=== PATIENT | female | born 1960 | race Caucasian/White ===

== ENCOUNTER 2024-04-23 07:18 | Day surgery (SDC) | payer OTHER ==
[2024-04-20 14:48] LABS: ALBUMIN 3.8 G/DL (3.4-5.0); ALKALINE PHOSPHATASE 90 IU/L (46-116); BLOOD UREA NITROGEN 18 MG/DL (7-18); BUN/CREATININE RATIO 23.1 (10.0-20.0); CALCIUM 9.1 MG/DL (8.5-10.1); CHLORIDE 104 MMOL/L (99-107); CREATININE 0.78 MG/DL (0.40-0.90); PRE OP ALT 19 U/L (30-65); PRE OP ANION GAP 6 (8-16); PRE OP AST 18 U/L (10-37); PRE OP BILIRUB, TOTAL 0.2 MG/DL (0.0-1.0); PRE OP GLUCOSE 96 MG/DL (70-104); PRE OP POTASSIUM 3.9 MMOL/L (3.4-5.1); PRE OP SODIUM 138 MMOL/L (135-145); TOTAL CARBON DIOXIDE 27.9 MMOL/L (24-32); TOTAL PROTEIN 7.7 G/DL (6.4-8.2); eGFR 74 ML/MIN
[2024-04-20 15:15] LABS: BASOPHILS % (AUTO) 0.5 % (0-1); EOSINOPHILS # (AUTO) 0.3 X10'3 (0-0.9); EOSINOPHILS % (AUTO) 3.4 % (0-6); LYMPHOCYTES % (AUTO) 45.2 % (21-51); MEAN CORPUSCULAR HEMOGLOBIN 29.9 PG (27.0-31.0); MEAN CORPUSCULAR HGB CONC 33.5 g/dL (33.0-36.5); MEAN CORPUSCULAR VOLUME 89.2 FL (78-98); MEAN PLATELET VOLUME 9.4 FL (7.4-10.4); MONOCYTES # (AUTO) 0.6 X10'3 (0-0.9); MONOCYTES % (AUTO) 7.3 % (2-12); NEUTROPHILS # (AUTO) 3.9 X10'3 (1.8-7.7); NEUTROPHILS % (AUTO) 43.6 % (42-75); PRE OP HEMATOCRIT 42.3 % (35.0-45.0); PRE OP HEMOGLOBIN 14.2 g/dL (12.0-16.0); PRE OP PLATELET COUNT 278 X10'3 (140-440); PRE OP WHITE BLOOD COUNT 8.9 10'3 (4.8-10.8); RED BLOOD COUNT 4.75 X10'6 (4.20-5.60); RED CELL DISTRIBUTION WIDTH 13.3 % (11.5-14.5)
[~2024-04-23] VITALS: Ht 160 cm; Wt 83.0 kg
[2024-04-23] MEDS: ceFAZolin 2gm in dextrose, iso 50 ML IV ONE (07:11)
[~2024-04-23 07:18] MED LIST: BUPIVAcaine 2.5mg/ml inj 50ml vial (contains preservative) ONE; CELE-193 PO; CHOL500044 PO; CLON0.5T4 PO; FLUV100T21 PO; LIDOcaine 2% (20mg/ml) 5ml vial ONE; MAGN100T6 PO; THEA200C PO; VALA500T41 PO; famotidine 20mg tablet PO ONE; ringers solution, lacted 1,000 ML IV SCH
[2024-04-23 07:35] VITALS: RESP 15; O2SAT 97
[2024-04-23] MEDS ORDERED: ondansetron/PF 4mg/2ml inj IV PRN (07:50)
[2024-04-23] MEDS ORDERED: morphine 2 MG/ML inj. syringe IV PRN (07:50)
[2024-04-23] MEDS ORDERED: labetalol 20mg/4ml (5mg/ml) syringe IV PRN (07:50)
[2024-04-23] MEDS ORDERED: ringers solution, lacted 1,000 ML IV SCH (07:50)
[2024-04-23] MEDS ORDERED: morphine 4 MG/ML inj SYRINge IV PRN (07:50)
[2024-04-23 07:56] VITALS: BP 134/64; PULSE 51; RESP 14; TEMP 98.5; O2SAT 97
[2024-04-23] MEDS ORDERED: fentaNYL/PF 50MCG/1 ML 2ML syringe ONE (09:08)
[2024-04-23] MEDS ORDERED: ketorolac trometh 30MG/ML vial 30 MG/ML VIAL ONE (09:08)
[2024-04-23] MEDS ORDERED: LIDOcaine 0.5% (5mg/ml) 50ml vial ONE (09:08)
[2024-04-23] MEDS ORDERED: ondansetron/PF 4mg/2ml inj ONE (09:08)
[2024-04-23] MEDS ORDERED: MIDAZolam 1 MG/ML 5ML VIAL ONE (09:08)
[2024-04-23 10:01] VITALS: BP 116/68; PULSE 52; RESP 16; O2SAT 97
[2024-04-23 10:10] VITALS: BP 108/61; PULSE 51; RESP 10; O2SAT 93
[2024-04-23 10:20] VITALS: BP 105/56; PULSE 52; RESP 12; O2SAT 94
[2024-04-23 10:30] VITALS: BP 111/57; PULSE 58; RESP 14; O2SAT 98
== END 2024-04-23 10:36 | disposition home or self-care (01) ==
LOC: PAS 07:18
PROVIDERS: ATTEND Orthopaedic Surgery Hand Surgery
DX: M18.12 Unilateral primary osteoarthritis of first carpometacarpal joint, left hand (principal); F41.9 Anxiety disorder, unspecified; Z79.899 Other long term (current) drug therapy; Z88.6 Allergy status to analgesic agent; Z90.710 Acquired absence of both cervix and uterus; Z98.890 Other specified postprocedural states
CPT/HCPCS: 25312; 25447; 36415; 80053; 82948; 85025; J0690; J1885; J2250; J2405; J3010; J3490; J7030; J7120; Z7506; Z7512; A4215; A4618; A6449; A7000